=== PATIENT | female | born 1960 | race Caucasian/White ===

== ENCOUNTER 2017-03-11 05:52 | Day surgery (SDC) | payer MEDICARE, OTHER ==
[~2017-03-11] VITALS: Ht 162.6 cm; Wt 145.2 kg
[2017-03-11] MEDS ORDERED: ALBUTEROL SULFATE 2.5 MG/0.5 ML NEB SOLUTION NEB ONE (05:53)
[2017-03-11] MEDS ORDERED: BENZOCAINE 20% 50 MCG/SPRAY 57 GM TP ONE (05:53)
[2017-03-11] MEDS ORDERED: LIDOCAINE HCL 2% 5 ML JELLY TP ONE (05:53)
[2017-03-11] MEDS ORDERED: SODIUM CHLORIDE 0.9% 1,000 ML IV ONE ×2 (06:17→07:00)
[2017-03-11] MEDS ORDERED: KDUR10 PO (06:45)
[2017-03-11] MEDS ORDERED: ACET500C4 PO ×2 (06:45)
[2017-03-11] MEDS ORDERED: METO50 PO ×2 (06:45)
[2017-03-11] MEDS ORDERED: FURO40 PO (06:45)
[2017-03-11] MEDS ORDERED: METF500T4 PO (06:45)
[2017-03-11] MEDS ORDERED: GLIP10 PO (06:45)
[2017-03-11] MEDS ORDERED: ZOLP10TA7 PO (06:45)
[2017-03-11] MEDS ORDERED: BENZ-51 PO (06:45)
[2017-03-11] MEDS ORDERED: MONT10TA21 PO (06:45)
[2017-03-11] MEDS ORDERED: LISI-662 PO (06:45)
[2017-03-11] MEDS ORDERED: OMEP20 PO (06:45)
[2017-03-11] MEDS ORDERED: LORA10TA7 PO (06:45)
[2017-03-11] MEDS ORDERED: GABA-531 PO (06:45)
[2017-03-11] MEDS ORDERED: VITAD1000 PO (06:45)
[2017-03-11] MEDS ORDERED: FLUT16H NASAL (06:45)
[2017-03-11] MEDS ORDERED: NAPR-58 PO (06:45)
[2017-03-11] MEDS ORDERED: DOXY50CA7 PO (06:45)
[2017-03-11] MEDS ORDERED: SIMV-259 PO (06:45)
[2017-03-11] MEDS ORDERED: NITR.4 SL (06:45)
[2017-03-11] MEDS ORDERED: PENT400 PO (06:45)
[2017-03-11] MEDS ORDERED: AMOX1TAB16 PO (06:45)
[2017-03-11] MEDS ORDERED: ASPI-1182 PO (06:45)
[2017-03-11] MEDS ORDERED: PIOG45TA4 PO (06:45)
[2017-03-11] MEDS ORDERED: ALEN35TA32 PO (06:45)
[2017-03-11] MEDS ORDERED: BUDE10.2 IH (06:46)
[2017-03-11] MEDS ORDERED: ALBU8.5H8 IH (06:46)
[2017-03-11] MEDS ORDERED: FentaNYL CITRATE-PF 100 MCG/2 ML VIAL ONE (07:45)
[2017-03-11] MEDS ORDERED: MIDAZOLAM HCL 2 MG/2 ML VIAL ONE (07:45)
[2017-03-11] MEDS ORDERED: MethylPREDNISolone SOD SUCC 125 MG/2 ML VIAL IVP ONE (08:45)
[2017-03-11] MEDS ORDERED: OXYGEN THERAPY IH SCH (20:00)
== END 2017-03-11 12:00 | disposition home or self-care (01) ==
LOC: SURGERY 05:52
PROVIDERS: ATTEND Internal Medicine Critical Care Medicine
DX: J38.4 Edema of larynx (principal); B37.0 Candidal stomatitis; I10 Essential (primary) hypertension; E11.9 Type 2 diabetes mellitus without complications; E78.00 Pure hypercholesterolemia, unspecified; M19.90 Unspecified osteoarthritis, unspecified site; J45.909 Unspecified asthma, uncomplicated; Z98.890 Other specified postprocedural states; Z79.82 Long term (current) use of aspirin; Z79.84 Long term (current) use of oral hypoglycemic drugs; Z79.899 Other long term (current) drug therapy
CPT/HCPCS: 31623; 31624; 71010; 87015 ×2; 87070; 87101; 87205; 87220; 88108; 88184; 88185; 88312; 93005; 94640; J2250; J2930; J3010; J7030

== ENCOUNTER 2018-12-04 06:10 | Day surgery (SDC) | payer MEDICARE, OTHER ==
[~2018-12-04] VITALS: Ht 165.1 cm; Wt 138.6 kg
[~2018-12-04 06:10] MED LIST: ACET500C4 PO; ALBU8.5H8 IH; ALEN35TA32 PO; AMOX1TAB16 PO; ASPI-1182 PO; BENZ-51 PO; BUDE10.2 IH; CHOL100018 PO; DOXY50CA7 PO; FLUT16H NASAL; FURO40 PO; GABA-531 PO; GLIP10 PO; KDUR10 PO; LISI-662 PO; LORA10TA7 PO; METF-960 PO; METO50 PO; MONT10TA21 PO; NAPR-1025 PO; NITR0.4T52 SL; OMEP20 PO; PENT400T37 PO; PIOG45TA4 PO; SIMV-259 PO; SODIUM CHLORIDE 0.9% 1,000 ML IV ONE; ZOLP10TA7 PO
[2018-12-04] MEDS ORDERED: LIDOCAINE 2% 5 ML JELLY TP ONE (06:11)
[2018-12-04] MEDS ORDERED: BENZOCAINE 20% 50 MCG/SPRAY 57 GM TP ONE (06:11)
[2018-12-04] MEDS ORDERED: ALBUTEROL SULFATE 2.5 MG/0.5 ML NEB SOLUTION NEB ONE (06:11)
[2018-12-04] MEDS ORDERED: LIDOCAINE 4% 50 ML SOLUTION TP ONE (06:11)
[2018-12-04] MEDS ORDERED: EXEN2PEN SQ (07:30)
[2018-12-04] MEDS ORDERED: MIDAZOLAM HCL 2 MG/2 ML VIAL ONE (07:48)
[2018-12-04] MEDS ORDERED: FentaNYL CITRATE-PF 100 MCG/2 ML VIAL ONE (07:49)
[2018-12-04 07:51] LABS: GLUCOMETER DEV NAME(LOC) SDS.; GLUCOSE,POINT OF CARE 158 MG/DL (70-110)
[2018-12-04] MEDS ORDERED: MethylPREDNISolone SOD SUCC 125 MG/2 ML VIAL IVP ONE (09:00)
[2018-12-04] MEDS ORDERED: MethylPREDNISolone SOD SUCC 125 MG/2 ML VIAL ONE (09:09)
[2018-12-04] MEDS ORDERED: OXYGEN THERAPY IH SCH (20:00)
== END 2018-12-04 10:40 | disposition home or self-care (01) ==
LOC: SURGERY 06:10
PROVIDERS: ATTEND Internal Medicine Critical Care Medicine
DX: J38.4 Edema of larynx (principal); B37.0 Candidal stomatitis; J45.909 Unspecified asthma, uncomplicated; J98.8 Other specified respiratory disorders; I10 Essential (primary) hypertension; E11.9 Type 2 diabetes mellitus without complications; Z85.42 Personal history of malignant neoplasm of other parts of uterus; Z79.4 Long term (current) use of insulin; Z79.899 Other long term (current) drug therapy; Z79.01 Long term (current) use of anticoagulants; Z98.890 Other specified postprocedural states
CPT/HCPCS: 31623; 31624; 71045; 82962; 87015; 87070; 87101; 87205; 87206; 87220; 88108; 88312; J2250; J2930; J3010; J7030